=== PATIENT | female | born 1950 | race African-American/Black ===

== ENCOUNTER 2020-10-12 10:16 | Emergency (ER) | payer BC, OTHER ==
[~2020-10-12] VITALS: Ht 167.6 cm; Wt 95.3 kg
--- NOTE | 2020-10-12 10:25 | NUR ---
Dr Pete at bedside for mSE.
[2020-10-12] MEDS ORDERED: FLUORESCEIN SODIUM 1 MG STRIP OP ONE (10:30)
[2020-10-12] MEDS ORDERED: TETRACAINE HCL 0.5% OPHT DROP 2 ML BOTTLE OP ONE (10:30)
[2020-10-12] MEDS ORDERED: TETRACAINE HCL 0.5% OPHT DROP 2 ML BOTTLE ONE (10:37)
[2020-10-12 10:54] LABS: *BILIRUBIN,URIN NEGATIVE (NEGATIVE); *BLOOD, URINE NEGATIVE (NEGATIVE); *CLARITY,URINE CLEAR (CLEAR); *COLOR,URINE YELLOW (YELLOW); *KETONES,URINE NEGATIVE (NEGATIVE); *UROBILINOGEN,URINE 0.2 E.U./dl (NORMAL); LEUKOCYTE ESTERASE ,URINE NEGATIVE (NEGATIVE); NITRITE, URINE NEGATIVE (NEGATIVE); PH,URINE 7.5 (5.0-8.0); UGLUCOSE NEGATIVE (NEGATIVE)
[2020-10-12] MEDS ORDERED: ERYT3.5O24 EACHEYE (11:17)
--- NOTE | 2020-10-12 11:19 | NUR ---
Patient has been cleared by ER MD for discharge. Written and verbal after care instructions given. Patient verbalizes understanding of instructions. Stressed follow up or return to ER for worsening s/s. Patient discharged to home in stable condition, ambulated out of ED in steady gait.
[2020-10-12 11:23] VITALS: BP 142/74
== END 2020-10-12 11:25 | disposition home or self-care (01) ==
LOC: ER 10:16 → EDBD 10:16 → ER 11:25
DX: H00.012 Hordeolum externum right lower eyelid (principal); I10 Essential (primary) hypertension; M25.562 Pain in left knee; R32 Unspecified urinary incontinence
CPT/HCPCS: A4663

== ENCOUNTER 2020-12-08 17:40 | Emergency (ER) | payer MEDICARE, OTHER ==
[~2020-12-08] VITALS: Ht 167.6 cm; Wt 108.9 kg
[~2020-12-08 17:40] MED LIST: ERYT3.5O24 EACHEYE
--- NOTE | 2020-12-08 19:00 | NUR ---
Recieved report from Altagracia RN, patient in bed stable A/O x4, able to make needs verbally known.
[2020-12-08 19:01] LABS: *BILIRUBIN,URIN NEGATIVE (NEGATIVE); *BLOOD, URINE NEGATIVE (NEGATIVE); *CLARITY,URINE CLEAR (CLEAR); *COLOR,URINE YELLOW (YELLOW); *KETONES,URINE NEGATIVE (NEGATIVE); *UROBILINOGEN,URINE 0.2 E.U./dl (NORMAL); LEUKOCYTE ESTERASE ,URINE 1+ (NEGATIVE); NITRITE, URINE NEGATIVE (NEGATIVE); UGLUCOSE NEGATIVE (NEGATIVE)
[2020-12-08 19:16] LABS: BACTERIA,URINE NONE SEEN /HPF (NONE SEEN); RBC,URINE 0-3 /HPF (0-3)
[2020-12-08] MEDS ORDERED: NITR100C11 PO (20:07)
--- NOTE | 2020-12-08 20:16 | NUR ---
Patient discharged to home in stable condition, A/O x4. No SOB or labored breathing, afebrile. No changes in LOC noted No c/o pain or discomfort at this time. Written and verbal after care instructions given. Patient verbalizes understanding of instructions. Stressed follow up or return to ER for worsening s/s. Steady gait.
[2020-12-08 20:17] VITALS: BP 123/85
== END 2020-12-08 20:17 | disposition home or self-care (01) ==
LOC: ER 17:46
DX: N76.0 Acute vaginitis (principal); N39.0 Urinary tract infection, site not specified; R32 Unspecified urinary incontinence; E78.00 Pure hypercholesterolemia, unspecified
CPT/HCPCS: 87086; 87210; A4663

== ENCOUNTER 2020-12-11 15:42 | Emergency (ER) | payer MEDICARE, OTHER ==
[~2020-12-11] VITALS: Ht 167.6 cm; Wt 108.9 kg
[~2020-12-11 15:42] MED LIST changes: +NITR100C11 PO
[2020-12-11] MEDS ORDERED: MORPHINE SULFATE 4 MG/1 ML DISP.SYRIN IV ONE (15:45)
[2020-12-11] MEDS ORDERED: ONDANSETRON 4 MG/2 ML VIAL IV ONE (15:45)
--- NOTE | 2020-12-11 15:45 | NUR ---
Dr Donya Georges is at bedside for MSE.
[2020-12-11] MEDS ORDERED: MORPHINE SULFATE 4 MG/1 ML DISP.SYRIN ONE (15:58)
[2020-12-11] MEDS ORDERED: ONDANSETRON 4 MG/2 ML VIAL ONE (15:58)
--- NOTE | 2020-12-11 16:01 | NUR ---
X-ray tech is at bedside, patient has been medicated, slowly showing less non-verbal pain signs.
[2020-12-11] MEDS ORDERED: IBUP-1955 PO (16:20)
[2020-12-11] MEDS ORDERED: PROPOFOL 200 MG/20 ML BOTTLE ONE (16:21)
[2020-12-11] MEDS ORDERED: PROPOFOL 0 ML ONE (16:21)
[2020-12-11] MEDS ORDERED: FENTANYL CITRATE 100 MCG/2 ML AMPUL ONE (16:50)
--- NOTE | 2020-12-11 17:00 | NUR ---
Patient is now awake and verbally responsive. Still verbalizes to be having about 3-4/10 pain. Pending report from radiologist. MD and RN has spoken to the patient and is kept up to date on the results of the procedure. Still monitoring VS at this time.
--- NOTE | 2020-12-11 18:15 | NUR ---
Pt has been cleared for DC by ERMIlana. Pt is now fully awake, alert and oriented. VS recorded accordingly. Pt able to ambulate from room to bathroom and back, about 40 steps in steady and stable gait. IV removed. Catheter intact and site benign. Pressure and 4x4 gauze applied to site. No bleeding noted. Written and verbal after care instructions given. Patient verbalizes understanding of instructions. Stressed follow up or return to ER for worsening s/s.
--- NOTE | 2020-12-11 18:41 | NUR ---
At this time, patient is comfortable. Dinner was provided and belongings kept in plastic bag. Pt also assisted back to street clothes. We are providing transportation to patient, RN is arranging a taxi to patient's car located @ a bank where patient was picked up by paramedics. However, due to issues with keys, pt has now requested to be dropped off to her residence. [employer] contacted again, pending agent.
--- NOTE | 2020-12-11 18:46 | NUR ---
S/w [employer] and confirmed destination to: [address], [address] [place] [id number]. Nursing Information Technology Program Manager Keisha made aware.
--- NOTE | 2020-12-11 20:48 | NUR ---
Patient's taxi service has no arrived. Check up on that with [employer]. Still pending a otr company driver to take the assignment.
[2020-12-11 21:50] VITALS: BP 135/70
--- NOTE | 2020-12-11 21:50 | NUR ---
Patient discharged to home in stable condition. Written and verbal after care instructions given. Patient verbalizes understanding of instructions. Stressed follow up or return to ER for worsening s/s. Patient did not wait for the taxi and made a phone call for someone else to pick her up and drive her him. Patient ambulates with steady gait, V/S stable, left with all personal belongings.
== END 2020-12-11 21:50 | disposition home or self-care (01) ==
LOC: ER 15:42
DX: S43.014A Anterior dislocation of right humerus, initial encounter (principal); W18.39XA Other fall on same level, initial encounter; Y93.89 Activity, other specified; Y92.510 Bank as the place of occurrence of the external cause; E78.5 Hyperlipidemia, unspecified; E66.9 Obesity, unspecified; Z68.38 Body mass index [BMI] 38.0-38.9, adult
CPT/HCPCS: 23650; 73020; 73030; 96374; 96375; 99152; 99285; J2270; J2405; G0500; J3010; J3490; J7040